=== PATIENT | female | born 1945 | race Caucasian/White ===

== ENCOUNTER 2022-11-20 00:23 | Day surgery (SDC) | payer OTHER, SELFPAY ==
[2022-11-05 15:07] VITALS: BMI 30.4
--- NOTE | 2022-11-19 16:23 | PM.HPGS ---
History of Present Illness History of Present Illness Consent: Risks, benefits, and alternatives have been discussed and questions answered. Patient agrees to proceed with procedure. Chief complaint: other fecal abnormalities Narrative: Lacie Pelayo is a 77 year old female who recently was found have a positive Cologuard test. Review of Systems Review of Systems: All systems reviewed & are unremarkable except as noted in HPI and below PMFSH Past Medical History Medical History Essential hypertension Hypothyroidism Mixed hyperlipidemia Prediabetes Vitamin D deficiency Family History Family History Mother Hypertension Family history of heart disease in male family member before age 55 Father Hypertension Family history unknown Family history of malignant neoplasm Grandparent Cerebrovascular accident Sibling Patient's sister is in good health Social History Social History Smoking status: Never smoker Second hand tobacco smoke exposure: Yes Alcohol intake: current Alcohol use details: Social Substance use: never Substance use type: does not use Lack of Transportation: No Lack of Food: Never True Current Housing: I Have Housing Concerned About Future Housing: No Difficulty Paying Gas/Electric Bills: Decline to Answer Difficulty Paying for Meds: No Currently Unemployed: No Education: Associate Degree Difficulty w/ Childcare or Family Care: No Meds Home Medications and Allergies Home Medications Medication Instructions Recorded Confirmed Type cholecalciferol (vitamin D3) 50 50 mcg PO DAILY 03/21/20 11/08/22 History mcg (2,000 unit) tablet calcium carbonate 500 mg calcium 500 mg PO DAILY 05/01/22 11/08/22 History (1,250 mg) chewable tablet (Calcium 500) glucosamine sulfate 500 mg capsule 500 mg PO DAILY 10/02/22 11/08/22 History multivitamin (Daily Multi-Vitamin 1 tablet PO DAILY 10/02/22 11/08/22 History tablet) omega-3 fatty acids 1,250 mg 1,250 mg PO DAILY 10/02/22 11/08/22 History capsule vitamin B complex (B 1 tablet PO DAILY 10/02/22 11/08/22 History Complex-Vitamin B12 tablet) vitamin E mixed 400 unit capsule 400 unit PO DAILY 10/02/22 11/08/22 History diltiazem HCl 420 mg capsule,24 420 mg PO DAILY #90 caps 10/08/22 11/08/22 Rx hr,extended release levothyroxine 125 mcg tablet See Rx Instructions .Route 10/08/22 11/08/22 Rx .COMPLEX #90 tabs benazepril 20 See Rx Instructions .Route 10/17/22 11/08/22 Rx mg-hydrochlorothiazide 25 mg tablet .COMPLEX #90 tabs amlodipine 5 mg tablet 5 mg PO DAILY 11/05/22 11/08/22 History loratadine 10 mg tablet (Allergy 10 mg PO DAILY 11/05/22 11/08/22 History Relief (loratadine)) metoprolol succinate 50 mg 50 mg PO DAILY #30 tabs 11/07/22 11/20/22 Rx tablet,extended release 24 hr spironolactone 25 mg tablet 25 mg PO DAILY #30 tabs 11/07/22 11/20/22 Rx Allergies Allergy/AdvReac Type Severity Reaction Status Date / Time [id number]-[id number]-RfB Reductase AdvReac Intermediate Muscle Pain Verified 11/20/22 11:22 Inhibitor [Xdjuvdi-Neu-Zdw Reductase Inhibitor] Exam Const: General: alert Orientation/consciousness: patient oriented x3 Resp: Auscultation: clear to auscultation bilaterally Cardio: Rhythm: regular rhythm GI: GI Palp: Yes Soft to palpation and No Tenderness to palpation present (GI) Neuro: General: patient oriented x3 Assessment and Plan Assessment and plan (1) Screening for colon cancer: Code(s): Z12.11 - Encounter for screening for malignant neoplasm of colon Status: Acute Assessment and Plan: Colonoscopy with possible biopsy or polypectomy or cautery or injection of substances.
[2022-11-20 11:24] VITALS: BP 143/73; PULSE 73; RESP 18; TEMP 36.2; O2SAT 98
[2022-11-20] MEDS: LACTATED RINGERS 1,000 ML 150 ML IV CONT (11:32)
--- NOTE | 2022-11-20 12:16 | WPDANESEPPF ---
Anes - Initial Pre Proc Eval Procedure: Operation Date: 11/20/22 12:30 Proposed Procedures p Colonoscopy - Vlad Dumont MD Date/Time: 11/20/22 12:16 Surgeon: Vlad Dumont MD Pre Op Diagnosis: other fecal abnormalities Patient Data Age: 77 Gender: F Height: 1.65 m Weight: 79.9 kg Last Vital Signs Temp 97.1 F L 11/20/22 11:24 Pulse 73 11/20/22 11:24 Resp 18 11/20/22 11:24 BP 143/73 H 11/20/22 11:24 Pulse Ox 98 11/20/22 11:24 O2 Del Method Room Air 11/20/22 11:24 Allergies Allergy/AdvReac Type Severity Reaction Status Date / Time Dnmpppz-WFT-QeQ Reductase AdvReac Intermediate Muscle Pain Verified 11/20/22 11:22 Inhibitor [Plhjtot-Cci-Bkj Reductase Inhibitor] Home Medications Medication Instructions Recorded Confirmed Type cholecalciferol (vitamin D3) 50 50 mcg PO DAILY 03/21/20 11/08/22 History mcg (2,000 unit) tablet calcium carbonate 500 mg calcium 500 mg PO DAILY 05/01/22 11/08/22 History (1,250 mg) chewable tablet (Calcium 500) glucosamine sulfate 500 mg capsule 500 mg PO DAILY 10/02/22 11/08/22 History multivitamin (Daily Multi-Vitamin 1 tablet PO DAILY 10/02/22 11/08/22 History tablet) omega-3 fatty acids 1,250 mg 1,250 mg PO DAILY 10/02/22 11/08/22 History capsule vitamin B complex (B 1 tablet PO DAILY 10/02/22 11/08/22 History Complex-Vitamin B12 tablet) vitamin E mixed 400 unit capsule 400 unit PO DAILY 10/02/22 11/08/22 History diltiazem HCl 420 mg capsule,24 420 mg PO DAILY #90 caps 10/08/22 11/08/22 Rx hr,extended release levothyroxine 125 mcg tablet See Rx Instructions .Route 10/08/22 11/08/22 Rx .COMPLEX #90 tabs benazepril 20 See Rx Instructions .Route 10/17/22 11/08/22 Rx mg-hydrochlorothiazide 25 mg tablet .COMPLEX #90 tabs amlodipine 5 mg tablet 5 mg PO DAILY 11/05/22 11/08/22 History loratadine 10 mg tablet (Allergy 10 mg PO DAILY 11/05/22 11/08/22 History Relief (loratadine)) metoprolol succinate 50 mg 50 mg PO DAILY #30 tabs 11/07/22 11/20/22 Rx tablet,extended release 24 hr spironolactone 25 mg tablet 25 mg PO DAILY #30 tabs 11/07/22 11/20/22 Rx Patient hx anesthesia problems: none Family hx anesthesia problems: none Results Review: All pre-operative results and documents have been reviewed as part of the pre-operative evaluation. [facility] Past Medical History Medical History Essential hypertension Hypothyroidism Mixed hyperlipidemia Prediabetes Vitamin D deficiency Family History Family History Mother Hypertension Family history of heart disease in male family member before age 55 Father Hypertension Family history unknown Family history of malignant neoplasm Grandparent Cerebrovascular accident Sibling Patient's sister is in good health Social History Social History Smoking status: Never smoker Second hand tobacco smoke exposure: Yes Alcohol intake: current Alcohol use details: Social Substance use: never Substance use type: does not use Lack of Transportation: No Lack of Food: Never True Current Housing: I Have Housing Concerned About Future Housing: No Difficulty Paying Gas/Electric Bills: Decline to Answer Difficulty Paying for Meds: No Currently Unemployed: No Education: Associate Degree Difficulty w/ Childcare or Family Care: No Anes - Eval Final PreProcedure Day of Procedure 11/20/22 12:16 Patient weight: normal Heart: regular rate and rhythm Lungs: clear to auscultation Airway: Mallampati scale class II Neurological: alert and oriented Last oral intake: >/= 8 hours ASA classification: II Emergent: no Anesthetic plan: proceed Anesthesia type and monitoring: general GIVS and standard monitoring Results Review: All pre-operative results and documents have been rev
[2022-11-20 12:45] VITALS: BP 108/65; PULSE 78; RESP 19; O2SAT 96
[2022-11-20 12:55] VITALS: BP 140/73; PULSE 78; RESP 19; O2SAT 97
[2022-11-20 13:05] VITALS: BP 138/75; PULSE 67; RESP 19; O2SAT 99
== END 2022-11-20 13:14 | disposition home or self-care (01) ==
PROVIDERS: PCP Nurse Practitioner; Visit Provider Internal Medicine Gastroenterology
PROC: 0DJD8ZZ Inspection of Lower Intestinal Tract, Via Natural or Artificial Opening Endoscopic (ICD-10-PCS; CPT 45378; principal; 2022-11-20 12:30)
DX: Z12.11 Encounter for screening for malignant neoplasm of colon (principal); R19.5 Other fecal abnormalities; K63.5 Polyp of colon; I10 Essential (primary) hypertension; E78.2 Mixed hyperlipidemia; E03.9 Hypothyroidism, unspecified; E55.9 Vitamin D deficiency, unspecified; R73.03 Prediabetes
CPT/HCPCS: 45385; 88305; J2704; J7120

== ENCOUNTER 2022-11-22 14:11 | Outpatient (CLI) | payer OTHER, SELFPAY ==
--- NOTE | ~2022-11-22 | US_ITS ---
EXAMINATION: US retroperitoneal duplex ltd DATE: 11/22/2022 15:29 INDICATION: Poorly controlled hypertension TECHNIQUE: Multiple grayscale, color Doppler, and pulsed Doppler images of the kidneys and renal silva antonio were obtained. COMPARISON: None. FINDINGS: The aorta peak systolic velocity is 103 cm/s. There is normal renal contour and echogenicity bilatera lly. The right kidney measures 12.1 x 4.8 x 5.0 cm and the left 0.4 x 5.4 x 4.5 cm. There are no foc al renal lesions identified. There is no hydronephrosis. The right renal artery peak systolic valentino ocity is 139 cm/s in the proximal segment, 73 cm/s in the mid segment, and 91 cm/s in the distal segm ent. The left renal artery peak systolic velocity is 259 cm/s in the proximal segment, 113 cm/s in th e mid segment, and 103 cm/s in the distal segment. IMPRESSION: 1. Elevated peak systolic velocity at the proximal left renal artery which would be consistent with a >50-60% stenosis. Reviewed, dictated and finalized at location A. IMPRESSION: 1. Elevated peak systolic velocity at the proximal left renal artery which wou ld be consistent with a >50-60% stenosis.
== END 2022-11-22 14:12 | disposition home or self-care (01) ==
PROVIDERS: PCP Nurse Practitioner; Visit Provider Nurse Practitioner
DX: I10 Essential (primary) hypertension (principal)
CPT/HCPCS: 93976